=== PATIENT | female | born 1985 | race African-American/Black ===

== ENCOUNTER 2018-10-14 20:10 | Emergency (ER) | payer OTHER ==
[~2018-10-14] VITALS: Ht 170.2 cm; Wt 132.0 kg
[~2018-10-14 20:10] MED LIST: AUGMENTIN1 TA2 PO; COL100 PO; IBUPROFEN400 MG PO; LAC PO; LIPI10 PO; MEDDP PO; MOT600 PO; NOR10T PO; NORCO1 TA1 PO; NORCO1 TA2 PO; NPHOS PO; PERCOCET1 TA1 PO; ZIT250 PO
[2018-10-14 20:36] VITALS: Ht 170.2 cm; Wt 132.0 kg
[2018-10-14 22:31] VITALS: BP 136/92
== END 2018-10-14 22:31 | disposition home or self-care (01) ==
LOC: ED 20:10
DX: B34.9 Viral infection, unspecified (principal); Z88.8 Allergy status to other drugs, medicaments and biological substances

== ENCOUNTER 2019-05-28 08:04 | Emergency (ER) | payer BC ==
[~2019-05-28] VITALS: Ht 170.2 cm; Wt 132.0 kg
[2019-05-28 08:11] VITALS: Ht 170.2 cm; Wt 132.0 kg
== END 2019-05-28 11:07 | disposition home or self-care (01) ==
LOC: ED 08:04
DX: S93.402A Sprain of unspecified ligament of left ankle, initial encounter (principal); S30.0XXA Contusion of lower back and pelvis, initial encounter; Z88.1 Allergy status to other antibiotic agents; W10.8XXA Fall (on) (from) other stairs and steps, initial encounter; Y93.89 Activity, other specified; Y92.89 Other specified places as the place of occurrence of the external cause; Y99.8 Other external cause status

== ENCOUNTER 2019-06-04 09:01 | Emergency (ER) | payer BC ==
[~2019-06-04] VITALS: Ht 170.2 cm; Wt 130.6 kg
[2019-06-04 10:47] LABS: BASOPHIL % 0.8 % (0-2); PLATELET COUNT 219 x10^3mcL (130-400); RED CELL DISTRIBUTION WIDTH 13.4 % (11.5-14.5)
[2019-06-04 10:48] LABS: CALCIUM 8.4 mg/dL (8.5-10.1); CARBON DIOXIDE 30.4 mmol/L (21-32); CHLORIDE SERUM 106 mmol/L (98-107); CREATININE SERUM 0.8 mg/dL (0.6-1.0); GFR1 > 60 mL/min; GLUCOSE SERUM 89 mg/dL (74-106); POTASSIUM SERUM 3.8 mmol/L (3.5-5.1); SODIUM SERUM 142 mmol/L (136-145)
[2019-06-04 10:53] LABS: ALKALINE PHOSPHATASE 69 U/L (46-116); ALT/SGPT 18 U/L (14-59); AST/SGOT 11 U/L (15-37); BILIRUBIN TOTAL 0.2 mg/dL (0.20-1.00)
[2019-06-04 10:54] LABS: ALBUMIN 3.1 g/dL (3.4-5.0)
[2019-06-04 11:47] VITALS: BP 123/77
== END 2019-06-04 12:30 | disposition home or self-care (01) ==
LOC: ED 09:01
PROVIDERS: Specialist
DX: F43.0 Acute stress reaction (principal); Z88.1 Allergy status to other antibiotic agents; Z98.890 Other specified postprocedural states
CPT/HCPCS: 36415; J1885; J2060; Q0092